=== PATIENT | female | born 1970 | race Caucasian/White ===

== ENCOUNTER 2021-09-18 06:08 | Inpatient (IN) | payer SELFPAY ==
[2021-09-18] MEDS ORDERED: Morphine 4 MG/ML VIAL ONE (06:31)
[2021-09-18 10:01] VITALS: BMI 30.5
[2021-09-18] MEDS ORDERED: Electrolyte Replacement Protocol 1 EACH FS SCH (12:30)
[2021-09-18] MEDS ORDERED: Nicotine 14 MG PATCH TD PRN (12:31)
[2021-09-18] MEDS ORDERED: Acetaminophen 325 MG TAB PO PRN (12:31)
[2021-09-18] MEDS ORDERED: Ondansetron ODT 4 MG TAB PO PRN (12:31)
[2021-09-18] MEDS ORDERED: Nitroglycerin 0.4 MG TAB (25 Tab Bottle) SL PRN (12:54)
[2021-09-18] MEDS ORDERED: hydrALAZINE 20 MG/ML VIAL SLOW IVP PRN (13:03)
[2021-09-18] MEDS ORDERED: Ventolin HFA Inhaler 60 PUFF INHALER INH PRN ×2 (13:06→13:30)
[2021-09-18] MEDS ORDERED: Morphine 4 MG/ML VIAL SLOW IVP PRN (13:22)
[2021-09-18 13:42] LABS: Magnesium 1.9 mg/dL (1.6-2.6)
[2021-09-18] MEDS ORDERED: Nitroglycerin 2% Ointment 1 INCH/1 GM Packet TOP SCH (14:00)
[2021-09-18] MEDS ORDERED: Furosemide 20 MG/2 ML VIAL SLOW IVP SCH (14:15)
[2021-09-18] MEDS ORDERED: Magnesium 2 GM/50 ML 2 GM in Premix Bag 1 BAG IVPB SCH (14:15)
[2021-09-18] MEDS ORDERED: Spironolactone 25 MG TAB PO SCH (14:30)
[2021-09-18] MEDS: Carvedilol 6.25 MG TAB PO SCH (15:36)
[2021-09-18] MEDS ORDERED: Enoxaparin Sodium 60 MG/0.6 ML SYRINGE SC SCH (21:00)
[2021-09-18] MEDS ORDERED: Enoxaparin Sodium 30 MG/0.3 ML SYRINGE SC SCH (21:00)
[2021-09-18] MEDS: Enoxaparin Sodium 40 MG/0.4 ML SYRINGE SC SCH (21:29)
[2021-09-19] MEDS ORDERED: Nitroglycerin 2% Ointment 1 INCH/1 GM Packet ONE (02:32)
[2021-09-19] MEDS ORDERED: Metoprolol Tartrate 25 MG TAB PO SCH (02:45)
[2021-09-19] MEDS ORDERED: Nitroglycerin 2% Ointment 1 INCH/1 GM Packet TOP SCH (02:45)
[2021-09-19 05:15] LABS: Anion Gap 13 mmol/L (10-20); BUN (Urea Nitrogen) 17 mg/dL (7.0-18.7); Calc. Creatinine Clearance 116 mL/min (70-130); Calcium 8.8 mg/dL (7.8-10.44); Carbon Dioxide 22 mmol/L (22-29); Cardiac Risk 3.3 (Less than 4.5); Chloride 110 mmol/L (98-107); Cholesterol 169 mg/dl (< 200 Desired); Glucose 124 mg/dL (70-105); HDL Cholesterol 52 mg/dL (>60 Neg Risk); LDL Cholesterol, Calculated 102 mg/dL; Magnesium 2.1 mg/dL (1.6-2.6); Potassium 3.8 mmol/L (3.5-5.1); Sodium 141 mmol/L (136-145); Triglycerides 75 mg/dL (Less than 150)
[2021-09-19 05:35] LABS: #Eosinphils 0.1 10x3/uL (0.0-0.5); #Monocytes 0.4 10x3/uL (0.0-1.1); #Neutrophils 4.8 10x3/uL (1.5-8.4); %Basophils 0.4 % (0.0-2.0); %Lymphocytes 24.4 % (18.0-47.0); %Monocytes 5.5 % (0.0-10.0); %Neutrophils 67.4 % (40.0-75.0); Hemoglobin 15.1 g/dL (12.0-15.5); Mean Corpuscular HGB CONC 33.3 g/dL (32.0-36.0); Mean Corpuscular Hemoglobin 33.2 pg (27.0-33.0); Mean Corpuscular Volume 99.8 fl (81.6-98.3); Mean Platelet Volume 11.7 fl (7.4-10.4); RBC Distribution Width 13.2 % (11.5-14.5); Red Blood Cell (RBC) Count 4.55 10x6/uL (3.90-5.03); White Blood Cell (WBC) Count 7.1 10x3/uL (3.5-10.5)
[2021-09-19] MEDS ORDERED: Furosemide 40 MG/4 ML VIAL SLOW IVP SCH ×2 (05:45→09:00)
[2021-09-19] MEDS: Carvedilol 6.25 MG TAB PO SCH (05:48)
[2021-09-19] MEDS: Aspirin Chewable 81 MG TAB PO SCH (07:41)
[2021-09-19 07:49] LABS: Platelet Count 130 10x3/uL (150-450)
[2021-09-19] MEDS ORDERED: Carvedilol 12.5 MG TAB PO SCH (08:45)
[2021-09-19] MEDS ORDERED: Losartan Potassium 50 MG TAB PO SCH (09:00)
[2021-09-19] MEDS ORDERED: Losartan 25 MG TAB PO SCH (09:00)
[2021-09-19] MEDS: Valsartan 80 MG TAB PO SCH (09:27)
[2021-09-19] MEDS: Carvedilol 12.5 MG TAB PO SCH (16:41)
[2021-09-19 17:10] LABS: SARS-CoV-2 PCR by NAA Not Detected (NotDetected)
[2021-09-19] MEDS: Enoxaparin Sodium 40 MG/0.4 ML SYRINGE SC SCH (20:18)
[2021-09-20 05:09] LABS: Phosphorus 3.4 mg/dL (2.3-4.7)
[2021-09-20 05:10] LABS: Anion Gap 12 mmol/L (10-20); BUN (Urea Nitrogen) 15 mg/dL (7.0-18.7); Calc. Creatinine Clearance 120 mL/min (70-130); Calcium 9.2 mg/dL (7.8-10.44); Carbon Dioxide 26 mmol/L (22-29); Chloride 109 mmol/L (98-107); Glucose 92 mg/dL (70-105); Potassium 3.9 mmol/L (3.5-5.1); Sodium 143 mmol/L (136-145)
[2021-09-20 07:00] LABS: Mean Platelet Volume 11.7 fl (7.4-10.4); RBC Distribution Width 13.3 % (11.5-14.5); Red Blood Cell (RBC) Count 4.54 10x6/uL (3.90-5.03); White Blood Cell (WBC) Count 6.9 10x3/uL (3.5-10.5)
[2021-09-20 07:01] LABS: Platelet Count 128 10x3/uL (150-450)
[2021-09-20] MEDS: Valsartan 80 MG TAB PO SCH (08:16)
[2021-09-20] MEDS: Carvedilol 12.5 MG TAB PO SCH ×2 (08:17→17:04)
[2021-09-20] MEDS: Furosemide 40 MG/4 ML VIAL SLOW IVP SCH (08:17)
[2021-09-20] MEDS: Aspirin Chewable 81 MG TAB PO SCH (08:17)
[2021-09-20 08:57] LABS: Eosinophils 1 % (0-10); Lymphocytes 36 % (21-51); Monocytes 6 % (0-10)
[2021-09-20 08:58] LABS: Platelet Morphology Comment Appears Decreased
[2021-09-20 08:59] LABS: Neutrophil 57 % (42-75)
[2021-09-20] MEDS ORDERED: Magnesium 2 GM/50 ML 2 GM in Premix Bag 1 BAG IVPB SCH (14:00)
[2021-09-20] MEDS: Enoxaparin Sodium 40 MG/0.4 ML SYRINGE SC SCH (20:31)
[2021-09-21 06:09] LABS: Anion Gap 12 mmol/L (10-20); BUN (Urea Nitrogen) 21 mg/dL (7.0-18.7); Calc. Creatinine Clearance 122 mL/min (70-130); Calcium 8.9 mg/dL (7.8-10.44); Carbon Dioxide 25 mmol/L (22-29); Chloride 110 mmol/L (98-107); Glucose 94 mg/dL (70-105); Magnesium 2.1 mg/dL (1.6-2.6); Phosphorus 4.1 mg/dL (2.3-4.7); Potassium 3.7 mmol/L (3.5-5.1); Sodium 143 mmol/L (136-145)
[2021-09-21 07:00] LABS: #Eosinphils 0.2 10x3/uL (0.0-0.5); #Monocytes 0.5 10x3/uL (0.0-1.1); #Neutrophils 3.5 10x3/uL (1.5-8.4); %Basophils 0.5 % (0.0-2.0); %Eosinophils 3.2 % (0.0-6.0); %Lymphocytes 32.6 % (18.0-47.0); %Monocytes 7.9 % (0.0-10.0); %Neutrophils 55.3 % (40.0-75.0); Hemoglobin 14.4 g/dL (12.0-15.5); Mean Corpuscular HGB CONC 32.2 g/dL (32.0-36.0); Mean Corpuscular Hemoglobin 32.7 pg (27.0-33.0); Mean Corpuscular Volume 101.4 fl (81.6-98.3); Mean Platelet Volume 11.8 fl (7.4-10.4); Platelet Count 128 10x3/uL (150-450); Red Blood Cell (RBC) Count 4.41 10x6/uL (3.90-5.03); White Blood Cell (WBC) Count 6.3 10x3/uL (3.5-10.5)
[2021-09-21] MEDS: Aspirin Chewable 81 MG TAB PO SCH (08:51)
[2021-09-21] MEDS: Carvedilol 12.5 MG TAB PO SCH (08:51)
[2021-09-21] MEDS: Furosemide 40 MG/4 ML VIAL SLOW IVP SCH (08:51)
[2021-09-21] MEDS: Valsartan 80 MG TAB PO SCH (08:51)
[2021-09-21] MEDS ORDERED: Potassium Chloride 20 MEQ TAB PO SCH (14:00)
[2021-09-21] MEDS: Carvedilol 25 MG TAB PO SCH (17:16)
[2021-09-21] MEDS: Enoxaparin Sodium 40 MG/0.4 ML SYRINGE SC SCH (20:39)
[2021-09-22 05:35] LABS: Anion Gap 12 mmol/L (10-20); BUN (Urea Nitrogen) 20 mg/dL (7.0-18.7); Calc. Creatinine Clearance 117 mL/min (70-130); Calcium 9.1 mg/dL (7.8-10.44); Carbon Dioxide 24 mmol/L (22-29); Chloride 109 mmol/L (98-107); Glucose 82 mg/dL (70-105); Magnesium 1.9 mg/dL (1.6-2.6); Phosphorus 4.4 mg/dL (2.3-4.7); Potassium 4.3 mmol/L (3.5-5.1); Sodium 141 mmol/L (136-145)
[2021-09-22 06:07] LABS: #Basophils 0.1 10x3/uL (0.0-0.2); #Eosinphils 0.2 10x3/uL (0.0-0.5); #Monocytes 0.6 10x3/uL (0.0-1.1); #Neutrophils 2.9 10x3/uL (1.5-8.4); %Basophils 0.8 % (0.0-2.0); %Eosinophils 3.5 % (0.0-6.0); %Lymphocytes 37.8 % (18.0-47.0); %Neutrophils 47.7 % (40.0-75.0); Hemoglobin 15.1 g/dL (12.0-15.5); Mean Corpuscular HGB CONC 32.5 g/dL (32.0-36.0); Mean Corpuscular Volume 101.3 fl (81.6-98.3); Mean Platelet Volume 11.9 fl (7.4-10.4); RBC Distribution Width 13.2 % (11.5-14.5); Red Blood Cell (RBC) Count 4.58 10x6/uL (3.90-5.03); White Blood Cell (WBC) Count 6.1 10x3/uL (3.5-10.5)
[2021-09-22] MEDS ORDERED: Magnesium 2 GM/50 ML 2 GM in Premix Bag 1 BAG IVPB SCH (06:15)
[2021-09-22 06:33] LABS: Platelet Count 77 10x3/uL (150-450)
[2021-09-22] MEDS: Valsartan 80 MG TAB PO SCH (08:35)
[2021-09-22] MEDS: Carvedilol 25 MG TAB PO SCH ×2 (08:35→16:14)
[2021-09-22] MEDS: Aspirin Chewable 81 MG TAB PO SCH (08:35)
[2021-09-22] MEDS: Furosemide 40 MG/4 ML VIAL SLOW IVP SCH (08:35)
[2021-09-22] MEDS ORDERED: Enoxaparin Sodium 40 MG/0.4 ML SYRINGE SC SCH (21:00)
[2021-09-23 04:35] LABS: Anion Gap 12 mmol/L (10-20); BUN (Urea Nitrogen) 24 mg/dL (7.0-18.7); Calc. Creatinine Clearance 103 mL/min (70-130); Calcium 9.4 mg/dL (7.8-10.44); Carbon Dioxide 25 mmol/L (22-29); Chloride 109 mmol/L (98-107); Glucose 88 mg/dL (70-105); Magnesium 2.1 mg/dL (1.6-2.6); Phosphorus 4.2 mg/dL (2.3-4.7); Potassium 4.3 mmol/L (3.5-5.1); Sodium 142 mmol/L (136-145)
[2021-09-23 04:46] LABS: #Eosinphils 0.2 10x3/uL (0.0-0.5); #Monocytes 0.6 10x3/uL (0.0-1.1); #Neutrophils 3.1 10x3/uL (1.5-8.4); %Basophils 0.5 % (0.0-2.0); %Eosinophils 3.6 % (0.0-6.0); %Monocytes 9.3 % (0.0-10.0); %Neutrophils 50.3 % (40.0-75.0); Hemoglobin 15.5 g/dL (12.0-15.5); Mean Corpuscular Volume 99.8 fl (81.6-98.3); Mean Platelet Volume 11.3 fl (7.4-10.4); Platelet Count 142 10x3/uL (150-450); White Blood Cell (WBC) Count 6.1 10x3/uL (3.5-10.5)
[2021-09-23] MEDS: Carvedilol 25 MG TAB PO SCH ×2 (08:44→18:29)
[2021-09-23] MEDS: Furosemide 40 MG/4 ML VIAL SLOW IVP SCH (08:44)
[2021-09-23] MEDS: Aspirin Chewable 81 MG TAB PO SCH (08:44)
[2021-09-23] MEDS: Valsartan 80 MG TAB PO SCH (08:44)
[2021-09-23 14:51] VITALS: BP 109/64; TEMP 97.9
== END 2021-09-23 19:30 | disposition home or self-care (01) | DRG 291 ==
LOC: CSHERS 06:08 → CSHTELE 09:55
PROVIDERS: ADMIT Hospitalist; ATTEND Family Medicine
DX: I11.0 Hypertensive heart disease with heart failure (principal); I50.43 Acute on chronic combined systolic (congestive) and diastolic (congestive) heart failure; Z20.822 Contact with and (suspected) exposure to COVID-19; F17.210 Nicotine dependence, cigarettes, uncomplicated; I44.7 Left bundle-branch block, unspecified; R59.1 Generalized enlarged lymph nodes; I42.0 Dilated cardiomyopathy; R79.89 Other specified abnormal findings of blood chemistry; E04.1 Nontoxic single thyroid nodule; D69.6 Thrombocytopenia, unspecified; Z79.82 Long term (current) use of aspirin; Z87.442 Personal history of urinary calculi; Z79.899 Other long term (current) drug therapy; Z91.14 Patient's other noncompliance with medication regimen
CPT/HCPCS: 36415; 71275; 74177; 76536; 80048; 80061; 83036; 83735; 83880; 84100; 84443; 85025; 85041; 85048; 85060; 93005; 93010; 93306; 94760; 96374; J0360; J1650; J1940; J2270; J3475; U0003; U0005

== ENCOUNTER 2023-01-19 13:42 | Outpatient (CLI) | payer OTHER | END 2023-01-19 13:43 | disposition home or self-care (01) | LOC: CSHULT 13:42 | PROVIDERS: ATTEND Internal Medicine | DX: I50.20 Unspecified systolic (congestive) heart failure (principal); I42.9 Cardiomyopathy, unspecified | CPT/HCPCS: 93306 ==